=== PATIENT | female | born 1990 | race Caucasian/White ===

== ENCOUNTER 2021-08-03 06:52 | Observation (INO) | payer OTHER ==
[~2021-08-03] VITALS: Ht 165.1 cm; Wt 90.9 kg
[2021-08-03] MEDS ORDERED: HYDR50CA2 PO (07:10)
[2021-08-03] MEDS ORDERED: METO5TAB2 PO (07:10)
[2021-08-03] MEDS ORDERED: CYCL-707 PO (07:10)
[2021-08-03] MEDS ORDERED: VENL75CA47 PO (07:10)
[2021-08-03] MEDS ORDERED: QUET300T2 PO (07:10)
[2021-08-03] MEDS ORDERED: HYDR50TAB PO (07:10)
[2021-08-03] MEDS ORDERED: BUPR1SUB5 SL (07:10)
[2021-08-03] MEDS ORDERED: VENL150C43 PO (07:10)
[2021-08-03] MEDS ORDERED: LABE100T4 PO (07:10)
[2021-08-03] MEDS ORDERED: IBUPROFEN 800 MG TAB PO ONE (07:30)
[2021-08-03 07:59] LABS: HEMATOCRIT 28.1 % (36.0-47.0); MEAN CORPUSCULAR HEMOGLOBIN 28.5 pg (27.0-33.0); MEAN CORPUSCULAR HGB CONC 35.6 g/dl (32.0-36.5); MEAN CORPUSCULAR VOLUME 80.1 fl (80.0-96.0); PLATELET COUNT, AUTOMATED 216 10^3/uL (150-450); RED BLOOD COUNT 3.51 10^6/uL (4.00-5.40); WHITE BLOOD COUNT 13.9 10^3/uL (4.0-10.0)
[2021-08-03 08:25] LABS: EOSINOPHILS 2 % (0-3); LYMPHOCYTES 9 % (16-44); METAMYELOCYTES 1 % (0-0); MONOCYTES 5 % (0-5); MYELOCYTES 2 % (0-0); NEUTROPHILS 73 % (28-66)
[2021-08-03 08:29] LABS: HCG, SERUM QUALITATIVE NEGATIVE (NEGATIVE); MICROCYTOSIS 1+; PLATELET ESTIMATE NORMAL (NORMAL)
[2021-08-03 08:35] LABS: ALBUMIN 2.5 GM/DL (3.2-5.2); ALT/SGPT 21 U/L (12-78); BILIRUBIN,DIRECT 0.8 MG/DL (0.0-0.2); BILIRUBIN,TOTAL 1.1 MG/DL (0.2-1.0); BLOOD UREA NITROGEN 14 MG/DL (7-18); CALCIUM LEVEL 8.4 MG/DL (8.5-10.1); CARBON DIOXIDE LEVEL 26 MEQ/L (21-32); CHLORIDE LEVEL 94 MEQ/L (98-107); CREATININE FOR GFR 1.18 MG/DL (0.55-1.30); GLOMERULAR FILTRATION RATE 57.3 (>60); GLUCOSE, FASTING 130 MG/DL (70-100); LIPASE 39 U/L (73-393); POTASSIUM SERUM 2.6 MEQ/L (3.5-5.1); SODIUM LEVEL 131 MEQ/L (136-145); TOTAL PROTEIN 6.5 GM/DL (6.4-8.2)
[2021-08-03] MEDS ORDERED: KCL 10MEQ/100ML SWI (KRUN) 10 MEQ in IV 1 EA IV ONE (08:45)
[2021-08-03] MEDS ORDERED: NS 1,000 ML IV ONE (08:45)
[2021-08-03] MEDS ORDERED: PIPERACILLIN/TAZOBACTAM SOD 4.5 GM in D5W MINI-BAG PLUS 50 ML IV ONE (08:45)
[2021-08-03] MEDS ORDERED: NS 2,730 ML in IV 1 EA IV ONE (08:45)
[2021-08-03] MEDS ORDERED: QUEtiapine FUMARATE 50MG TAB PO SCH (09:00)
[2021-08-03] MEDS ORDERED: QUEtiapine FUMARATE 100 MG TAB PO SCH ×2 (09:00→21:00)
[2021-08-03] MEDS ORDERED: ISOVUE-370 76% 100ML VIAL As Ordered ONE (09:50)
[2021-08-03 09:58] LABS: MAGNESIUM LEVEL 1.9 MG/DL (1.8-2.4)
[2021-08-03 10:04] LABS: HEPATITIS B SURFACE ANTIGEN NEGATIVE (NEGATIVE)
[2021-08-03 10:31] LABS: HEPATITIS B CORE ANTIBODY IGM NEGATIVE (NEGATIVE)
[2021-08-03 11:19] LABS: HEPATITIS C VIRUS ABY INDEX > 11.0 INDEX (<0.8)
[2021-08-03] MEDS ORDERED: ALTA1TAB3 PO (11:49)
[2021-08-03] MEDS ORDERED: TRAZ150T90 PO (11:49)
[2021-08-03] MEDS ORDERED: QUET50TA4 PO (11:49)
[2021-08-03] MEDS ORDERED: LAMO150T3 PO (11:49)
[2021-08-03] MEDS ORDERED: HOME MED LIST COMPLETE! XX SCH (11:55)
[2021-08-03] MEDS ORDERED: **NOTE PATIENT COMMENT** MISC XX SCH (11:55)
[2021-08-03] MEDS: BUPRENORPHINE/NALOXONE 8-2MG SUBLINGUAL TABLET(SUBOXONE) SL SCH ×2 (12:43→21:14)
[2021-08-03 14:28] VITALS: BP 125/83
[2021-08-03] MEDS: cefTRIAXone SOD 2 GM in D5W MINI-BAG PLUS 50 ML IV SCH (14:48)
[2021-08-03] MEDS: KETOROLAC 30 MG/ML 1ML VIAL IV PRN ×2 (14:49→21:15)
[2021-08-03] MEDS: lamoTRIgine 100MG TAB PO SCH (14:50)
[2021-08-03] MEDS: VENLAFAXINE **XR** 75MG CAPSULE PO SCH ×2 (14:51→14:55)
[2021-08-03] MEDS: KCL 20MEQ in NS 1000ML 1,000 ML IV SCH (16:44)
[2021-08-03] MEDS: POTASSIUM CHLORIDE 10MEQ SR TABLET PO SCH ×2 (16:45→21:15)
[2021-08-03] MEDS: METOCLOPRAMIDE 5 MG TAB PO SCH ×2 (16:46→21:14)
[2021-08-03] MEDS: CYCLOBENZAPRINE 10MG TABLET PO SCH ×2 (16:46→21:14)
[2021-08-03] MEDS: LABETALOL 100MG TAB PO SCH ×2 (16:47→21:14)
[2021-08-03] MEDS: hydrOXYzine 50 MG TAB PO SCH ×2 (17:06→21:15)
[2021-08-03] MEDS: ACETAMINOPHEN 500 MG TAB PO PRN (17:07)
[2021-08-03 19:00] VITALS: BP 127/63
[2021-08-03] MEDS: MIRALAX *UNIT DOSE* 17GM PACKET PO SCH (21:13)
[2021-08-03] MEDS: traZODone 50 MG TAB PO SCH (21:14)
[2021-08-03] MEDS: SENOKOT S TAB PO SCH (21:15)
[2021-08-03] MEDS: QUEtiapine FUMARATE 100 MG TAB PO SCH (21:17)
[2021-08-03 22:00] VITALS: BP_SYST 107; BP_SYST 130; BP_DIAS 58; BP_DIAS 66
[2021-08-04] MEDS: KCL 20MEQ in NS 1000ML 1,000 ML IV SCH ×2 (03:49→14:23)
[2021-08-04] MEDS: ACETAMINOPHEN 500 MG TAB PO PRN (03:49)
[2021-08-04 06:00] VITALS: BP 122/63
[2021-08-04] MEDS: QUEtiapine FUMARATE 50MG TAB PO SCH ×2 (06:07→15:22)
[2021-08-04 06:37] LABS: HEMATOCRIT 25.5 % (36.0-47.0); HEMOGLOBIN 8.7 g/dl (12.0-15.5); MEAN CORPUSCULAR HEMOGLOBIN 28.2 pg (27.0-33.0); MEAN CORPUSCULAR HGB CONC 34.1 g/dl (32.0-36.5); MEAN CORPUSCULAR VOLUME 82.8 fl (80.0-96.0); PLATELET COUNT, AUTOMATED 171 10^3/uL (150-450); RED BLOOD COUNT 3.08 10^6/uL (4.00-5.40); WHITE BLOOD COUNT 13.3 10^3/uL (4.0-10.0)
[2021-08-04 07:00] LABS: BLOOD UREA NITROGEN 9 MG/DL (7-18); CALCIUM LEVEL 8.3 MG/DL (8.5-10.1); CARBON DIOXIDE LEVEL 29 MEQ/L (21-32); CHLORIDE LEVEL 104 MEQ/L (98-107); GLOMERULAR FILTRATION RATE > 60.0 (>60); GLUCOSE, FASTING 142 MG/DL (70-100); POTASSIUM SERUM 3.3 MEQ/L (3.5-5.1); SODIUM LEVEL 136 MEQ/L (136-145)
[2021-08-04] MEDS ORDERED: ALTAVERA PO SCH (09:00)
[2021-08-04] MEDS: MIRALAX *UNIT DOSE* 17GM PACKET PO SCH ×2 (09:09→20:11)
[2021-08-04] MEDS: METOCLOPRAMIDE 5 MG TAB PO SCH ×3 (09:09→20:11)
[2021-08-04] MEDS: lamoTRIgine 100MG TAB PO SCH (09:09)
[2021-08-04] MEDS: hydrOXYzine 50 MG TAB PO SCH ×3 (09:10→20:10)
[2021-08-04] MEDS: POTASSIUM CHLORIDE 10MEQ SR TABLET PO SCH ×3 (09:10→20:11)
[2021-08-04] MEDS: SENOKOT S TAB PO SCH ×2 (09:10→20:11)
[2021-08-04] MEDS: VENLAFAXINE **XR** 75MG CAPSULE PO SCH ×2 (09:10)
[2021-08-04] MEDS: CYCLOBENZAPRINE 10MG TABLET PO SCH ×3 (09:10→20:11)
[2021-08-04] MEDS: BUPRENORPHINE/NALOXONE 8-2MG SUBLINGUAL TABLET(SUBOXONE) SL SCH ×2 (09:10→20:10)
[2021-08-04] MEDS: ENOXAPARIN 40MG/0.4ML SYRINGE (J1650 PER 10MG) SC SCH (09:13)
[2021-08-04] MEDS: LABETALOL 100MG TAB PO SCH ×2 (09:17→20:11)
[2021-08-04 10:00] VITALS: BP 126/76
[2021-08-04 10:59] LABS: GC DNA AMPLIFICATION NEGATIVE (NEGATIVE)
[2021-08-04] MEDS: LIDOCAINE 5% (LIDODERM) PATCH TD SCH (11:06)
[2021-08-04] MEDS ORDERED: PHENAZOPYRIDINE 100 MG TAB PO PRN (11:25)
[2021-08-04] MEDS: BISACODYL 10 MG SUPP PR PRN (12:25)
[2021-08-04] MEDS: KETOROLAC 30 MG/ML 1ML VIAL IV PRN ×2 (12:29→21:06)
[2021-08-04] MEDS: cefTRIAXone SOD 2 GM in D5W MINI-BAG PLUS 50 ML IV SCH (13:30)
[2021-08-04 14:00] VITALS: BP 125/76
[2021-08-04 18:00] VITALS: BP 126/75
[2021-08-04] MEDS: QUEtiapine FUMARATE 100 MG TAB PO SCH (20:10)
[2021-08-04] MEDS: traZODone 50 MG TAB PO SCH (20:11)
[2021-08-04] MEDS ORDERED: **NOTE PATIENT COMMENT** MISC XX SCH (21:00)
[2021-08-04 22:00] VITALS: BP 143/90
[2021-08-05] MEDS: KCL 20MEQ in NS 1000ML 1,000 ML IV SCH ×3 (00:53→11:10)
[2021-08-05 02:00] VITALS: BP 114/55
[2021-08-05 06:00] VITALS: BP 116/74
[2021-08-05] MEDS: QUEtiapine FUMARATE 50MG TAB PO SCH (06:43)
[2021-08-05] MEDS: KETOROLAC 30 MG/ML 1ML VIAL IV PRN (06:52)
[2021-08-05 07:54] LABS: HEMATOCRIT 24.2 % (36.0-47.0); HEMOGLOBIN 8.1 g/dl (12.0-15.5); MEAN CORPUSCULAR HEMOGLOBIN 28.3 pg (27.0-33.0); MEAN CORPUSCULAR HGB CONC 33.5 g/dl (32.0-36.5); MEAN CORPUSCULAR VOLUME 84.6 fl (80.0-96.0); PLATELET COUNT, AUTOMATED 180 10^3/uL (150-450); RED BLOOD COUNT 2.86 10^6/uL (4.00-5.40); WHITE BLOOD COUNT 14.6 10^3/uL (4.0-10.0)
[2021-08-05 08:00] VITALS: BP 124/74
[2021-08-05] MEDS: ACETAMINOPHEN 500 MG TAB PO PRN (08:09)
[2021-08-05 08:51] LABS: BLOOD UREA NITROGEN 7 MG/DL (7-18); CALCIUM LEVEL 8.2 MG/DL (8.5-10.1); CARBON DIOXIDE LEVEL 24 MEQ/L (21-32); CHLORIDE LEVEL 109 MEQ/L (98-107); GLOMERULAR FILTRATION RATE > 60.0 (>60); GLUCOSE, FASTING 121 MG/DL (70-100); POTASSIUM SERUM 3.6 MEQ/L (3.5-5.1); SODIUM LEVEL 140 MEQ/L (136-145)
[2021-08-05] MEDS: lamoTRIgine 100MG TAB PO SCH (09:44)
[2021-08-05] MEDS: CYCLOBENZAPRINE 10MG TABLET PO SCH (09:44)
[2021-08-05] MEDS: BUPRENORPHINE/NALOXONE 8-2MG SUBLINGUAL TABLET(SUBOXONE) SL SCH (09:44)
[2021-08-05] MEDS: VENLAFAXINE **XR** 75MG CAPSULE PO SCH ×2 (09:44)
[2021-08-05] MEDS: BISACODYL 10 MG SUPP PR PRN (09:44)
[2021-08-05] MEDS: LIDOCAINE 5% (LIDODERM) PATCH TD SCH (09:45)
[2021-08-05] MEDS: POTASSIUM CHLORIDE 10MEQ SR TABLET PO SCH (09:45)
[2021-08-05] MEDS: METOCLOPRAMIDE 5 MG TAB PO SCH (09:45)
[2021-08-05] MEDS: SENOKOT S TAB PO SCH (09:45)
[2021-08-05] MEDS: MIRALAX *UNIT DOSE* 17GM PACKET PO SCH (09:45)
[2021-08-05] MEDS: hydrOXYzine 50 MG TAB PO SCH (09:45)
[2021-08-05] MEDS: ENOXAPARIN 40MG/0.4ML SYRINGE (J1650 PER 10MG) SC SCH (09:46)
[2021-08-05 09:48] VITALS: BP 125/68
[2021-08-05] MEDS: LABETALOL 100MG TAB PO SCH (09:48)
[2021-08-05] MEDS ORDERED: MAGNESIUM CITRATE 300 ML BTL PO ONE (09:50)
[2021-08-05] MEDS ORDERED: CEPH500C PO (09:56)
[2021-08-05] MEDS ORDERED: MIRA3350 PO (09:56)
[2021-08-05] MEDS ORDERED: SENO8.6T10 PO (09:56)
[2021-08-05 12:00] VITALS: BP 121/52
== END 2021-08-05 13:55 | disposition home or self-care (01) ==
LOC: M ED 06:52 → M ED INP 06:53 → ENRESERV 12:15 → M MSPAV 13:33
PROVIDERS: ADMIT Family Medicine; ATTEND Family Medicine
DX: N12 Tubulo-interstitial nephritis, not specified as acute or chronic (principal); B96.20 Unspecified Escherichia coli [E. coli] as the cause of diseases classified elsewhere; K59.09 Other constipation; I10 Essential (primary) hypertension; M54.50 Low back pain, unspecified; Z86.19 Personal history of other infectious and parasitic diseases; E87.6 Hypokalemia; R10.9 Unspecified abdominal pain; F99 Mental disorder, not otherwise specified; Z79.899 Other long term (current) drug therapy; Z79.2 Long term (current) use of antibiotics; Z79.3 Long term (current) use of hormonal contraceptives; F17.210 Nicotine dependence, cigarettes, uncomplicated
CPT/HCPCS: 36415; 71046; 74018; 74177; 76705; 80048; 80076; 81001; 83605; 83690; 83735; 84703; 85025; 85027; 86705; 86709; 86803; 87040; 87088; 87186; 87340; 87521; 87798; 87808; 87810; 87850; 93005; 96361; 96365; 96366; 96368; 96372; 96375; 96376; 99284; J0696; J1650; J1885; J2543; J3480; Q9967

== ENCOUNTER 2024-06-22 23:58 | Emergency (ER) | payer SELFPAY ==
[~2024-06-22] VITALS: Ht 162.6 cm; Wt 97.9 kg
[~2024-06-22 23:58] MED LIST: ALTA1TAB3 PO; BUPR1SUB5 SL; CEPH500C PO; CYCL-707 PO; HYDR50CA2 PO; HYDR50TAB PO; LABE100T6 PO; LAMO150T3 PO; METO5TAB2 PO; MIRA3350 PO; QUET300T2 PO; QUET50TA4 PO; SENO8.6T10 PO; TRAZ150T90 PO; VENL150C43 PO; VENL75CA47 PO
[2024-06-23 02:35] VITALS: BP 118/63; TEMP 98.7; O2SAT 100
[2024-06-23] MEDS ORDERED: DALBAVANCIN 1,500 MG in D5W 250 ML IV ONE (04:30)
[2024-06-23] MEDS: DALBAVANCIN 1,500 MG in D5W 250 ML IV ONE (06:07)
== END 2024-06-23 07:06 | disposition home or self-care (01) ==
LOC: M ED 06-23 02:28
DX: L03.311 Cellulitis of abdominal wall (principal); I10 Essential (primary) hypertension; K21.9 Gastro-esophageal reflux disease without esophagitis; F41.9 Anxiety disorder, unspecified; F31.9 Bipolar disorder, unspecified; F32.A Depression, unspecified; Z88.8 Allergy status to other drugs, medicaments and biological substances; Z79.2 Long term (current) use of antibiotics; Z79.899 Other long term (current) drug therapy
CPT/HCPCS: 93005; 96365; 99284; J0875

== ENCOUNTER 2024-06-28 21:40 | Observation (INO) | payer OTHER, SELFPAY ==
[~2024-06-28] VITALS: Ht 165.1 cm; Wt 69.6 kg
[2024-06-28] MEDS ORDERED: ISOVUE-370 76% 100ML VIAL As Ordered ONE (23:18)
[2024-06-28 23:26] LABS: HEMATOCRIT 31.1 % (36.0-47.0); HEMOGLOBIN 10.5 g/dl (12.0-15.5); MEAN CORPUSCULAR HGB CONC 33.8 g/dl (32.0-36.5); MEAN CORPUSCULAR VOLUME 91.7 fl (80.0-96.0); PLATELET COUNT, AUTOMATED 451 10^3/uL (150-450); RED BLOOD COUNT 3.39 10^6/uL (4.00-5.40); WHITE BLOOD COUNT 11.5 10^3/uL (4.0-10.0)
[2024-06-28 23:32] LABS: ERYTHROCYTE SEDIMENTATION RATE 100 mm/hr (0-20)
[2024-06-28 23:46] LABS: ATYPICAL LYMPH 1 % (0-5); LYMPHOCYTES 17 % (16-44); MONOCYTES 6 % (0-5); NEUTROPHILS 75 % (28-66)
[2024-06-28 23:47] LABS: ALBUMIN 1.9 G/DL (3.2-5.2); ALKALINE PHOSPHATASE 185 U/L (35-104); ALT/SGPT 10 U/L (7.0-40); AST/SGOT 17 U/L (<34); BILIRUBIN,DIRECT 0.2 MG/DL (<0.4); BILIRUBIN,TOTAL 0.3 MG/DL (0.3-1.2); C REACTIVE PROTEIN QUANTITATIV 12.32 MG/DL (<1.0); PLATELET ESTIMATE INCREASED (NORMAL); TOTAL PROTEIN 7.2 G/DL (5.7-8.2)
[2024-06-28] MEDS ORDERED: MORPHINE 4 MG/ML 1ML VIAL IV PRN (23:50)
[2024-06-28 23:59] LABS: PROCALCITONIN 2.91 ng/ml
[2024-06-29] MEDS: ACETAMINOPHEN *IV* 1,000 MG in IV 1 EA IV ONE (00:16)
[2024-06-29] MEDS ORDERED: MOM 30ML SUSPENSION UDC PO PRN (02:00)
[2024-06-29] MEDS ORDERED: ACETAMINOPHEN 325 MG TAB PO PRN (02:00)
[2024-06-29] MEDS ORDERED: BOOSTRIX VACCINE (TETANUS/DIPHTH/ACEL. PERTUSSIS) 0.5ML SYR IM ONE (02:00)
[2024-06-29] MEDS ORDERED: MAALOX 30 ML SUSP *UDC PO PRN (02:00)
[2024-06-29] MEDS ORDERED: ONDANSETRON 4MG ORAL DISINTEGRATING TAB PO PRN (02:30)
[2024-06-29 04:00] VITALS: BP 142/84; TEMP 97.9; O2SAT 100
[2024-06-29] MEDS: VANCOMYCIN HCL 1,500 MG, VIAL MATE ADAPTER 1 EACH in NS 500 ML IV ONE (04:28)
[2024-06-29] MEDS: PERCOCET 5MG/325MG TAB PO PRN ×2 (04:32→08:34)
[2024-06-29 04:51] LABS: HEPATITIS B CORE ANTIBODY IGM NEGATIVE (NEGATIVE); HEPATITIS B SURFACE ANTIGEN NEGATIVE (NEGATIVE); HIV 1&2 SCREEN NEGATIVE (NEGATIVE)
[2024-06-29 04:55] LABS: HEPATITIS C VIRUS ABY INDEX > 11.00 INDEX (<0.8)
[2024-06-29] MEDS ORDERED: CEFEPIME HCL 2 GM in DEXTROSE 5% (D5W) ADV/MINI-BAG 50 ML IV SCH (05:00)
[2024-06-29] MEDS ORDERED: HOME MED LIST COMPLETE! XX SCH (05:00)
[2024-06-29] MEDS: CEFEPIME HCL 2 GM in DEXTROSE 5% (D5W) ADV/MINI-BAG 50 ML IV SCH (06:55)
[2024-06-29] MEDS: DOCUSATE SODIUM 100MG CAPSULE PO SCH (08:31)
[2024-06-29] MEDS: ENOXAPARIN 40MG/0.4ML SYRINGE (J1650 PER 10MG) SC SCH (09:00)
[2024-06-29] MEDS: BOOSTRIX VACCINE (TETANUS/DIPHTH/ACEL. PERTUSSIS) 0.5ML SYR IM ONE (09:14)
[2024-06-29] MEDS: VANCOMYCIN 1,000MG/200 ML IV BAG IV SCH (11:08)
[2024-06-29 12:00] VITALS: BP 112/68; TEMP 97.6; O2SAT 97
[2024-06-29 12:20] VITALS: O2SAT 95
[2024-06-29 14:06] LABS: AMPHETAMINES LEVEL URINE NEGATIVE (NEGATIVE); BARBITURATES URINE NEGATIVE (NEGATIVE); BENZODIAZEPINES URINE NEGATIVE (NEGATIVE); CANNABINOIDS URINE NEGATIVE (NEGATIVE); COCAINE METABOLITE URINE NEGATIVE (NEGATIVE); METHADONE URINE NEGATIVE (NEGATIVE); OPIATES URINE NEGATIVE (NEGATIVE); PHENCYCLIDINE URINE NEGATIVE (NEGATIVE)
[2024-06-29 20:28] VITALS: BP 129/77; TEMP 97.9; O2SAT 98
[2024-06-30] VITALS: BP 125/72; TEMP 98; O2SAT 100
[2024-06-30 04:00] VITALS: BP 128/78; TEMP 98.1; O2SAT 97
[2024-06-30] MEDS: HYALURONIDASE 15UNIT/ML 1ML SYRINGE (AMPHADASE) SC ONE (06:07)
[2024-06-30 06:11] LABS: BASO % 0.3 % (0.0-1.0); EOS # 0.1 10^3/uL (0.0-0.5); EOS % 0.9 % (0.0-3.0); HEMATOCRIT 31.1 % (36.0-47.0); LYMPH # 1.4 10^3/uL (1.5-5.0); LYMPH % 14.9 % (24.0-44.0); MEAN CORPUSCULAR HEMOGLOBIN 30.7 pg (27.0-33.0); MEAN CORPUSCULAR HGB CONC 32.2 g/dl (32.0-36.5); MEAN CORPUSCULAR VOLUME 95.4 fl (80.0-96.0); MONO # 0.4 10^3/uL (0.0-0.8); MONO % 4.6 % (2.0-8.0); NEUTROPHILS # 6.5 10^3/uL (1.5-8.5); NEUTROPHILS % 70.4 % (36.0-66.0); RED BLOOD COUNT 3.26 10^6/uL (4.00-5.40); WHITE BLOOD COUNT 9.2 10^3/uL (4.0-10.0)
[2024-06-30 06:32] LABS: PLATELET COUNT, AUTOMATED 395 10^3/uL (150-450)
[2024-06-30 06:45] LABS: ALBUMIN 1.8 G/DL (3.2-5.2); ALKALINE PHOSPHATASE 151 U/L (35-104); ALT/SGPT < 9 U/L (7.0-40); AST/SGOT 14 U/L (<34); BILIRUBIN,TOTAL 0.2 MG/DL (0.3-1.2); BLOOD UREA NITROGEN 8 MG/DL (9-23); C REACTIVE PROTEIN QUANTITATIV 4.75 MG/DL (<1.0); CALCIUM LEVEL 8.2 MG/DL (8.5-10.1); CARBON DIOXIDE LEVEL 24 MMOL/L (20-31); CHLORIDE LEVEL 111 MMOL/L (98-107); CREATININE FOR GFR 0.44 MG/DL (0.55-1.30); GLOMERULAR FILTRATION RATE > 60.0 (>60); GLUCOSE, FASTING 100 MG/DL (60-100); MAGNESIUM LEVEL 1.7 MG/DL (1.8-2.4); POTASSIUM SERUM 3.9 MMOL/L (3.5-5.1); PROCALCITONIN 1.15 ng/ml; SODIUM LEVEL 143 MMOL/L (136-145); TOTAL PROTEIN 6.4 G/DL (5.7-8.2)
[2024-06-30] MEDS: MAGNESIUM OXIDE 400MG TAB (MAG-OX) PO ONE (09:07)
[2024-06-30 12:00] VITALS: BP 124/75; TEMP 97.6; O2SAT 96
[2024-06-30] MEDS: HYDROMORPHONE HCL 0.5 MG/ 0.5 ML SYRINGE IV PRN (13:53)
[2024-06-30] MEDS: LevoFLOXacin 750 MG TABLET PO SCH (17:26)
[2024-06-30] MEDS: MUPIROCIN 2% OINT 22 GM TUBE TOP SCH (20:06)
[2024-06-30 20:34] VITALS: BP 114/67; TEMP 97.9; O2SAT 98
[2024-07-01 01:53] VITALS: BP 131/80; TEMP 98.1; O2SAT 96
[2024-07-01 04:40] VITALS: BP 135/78; TEMP 98.1; O2SAT 99
[2024-07-01 05:45] VITALS: O2SAT 98
[2024-07-01 07:48] LABS: HCV RNA QUANTITATION <15 NOT DETECTED IU/mL (NOT DETECTED); HCV RNA log10 <1.18 NOT DETECTED Log IU/mL (NOT DETECTED)
[2024-07-01 09:12] LABS: BASO % 0.4 % (0.0-1.0); EOS # 0.1 10^3/uL (0.0-0.5); HEMATOCRIT 31.5 % (36.0-47.0); HEMOGLOBIN 10.3 g/dl (12.0-15.5); LYMPH # 1.7 10^3/uL (1.5-5.0); LYMPH % 18.1 % (24.0-44.0); MEAN CORPUSCULAR HEMOGLOBIN 30.7 pg (27.0-33.0); MEAN CORPUSCULAR HGB CONC 32.7 g/dl (32.0-36.5); MONO # 0.5 10^3/uL (0.0-0.8); NEUTROPHILS # 6.1 10^3/uL (1.5-8.5); NEUTROPHILS % 66.9 % (36.0-66.0); PLATELET COUNT, AUTOMATED 340 10^3/uL (150-450); RED BLOOD COUNT 3.35 10^6/uL (4.00-5.40); WHITE BLOOD COUNT 9.1 10^3/uL (4.0-10.0)
[2024-07-01 09:23] LABS: BLOOD UREA NITROGEN 8 MG/DL (9-23); CALCIUM LEVEL 8.6 MG/DL (8.5-10.1); CARBON DIOXIDE LEVEL 25 MMOL/L (20-31); CHLORIDE LEVEL 109 MMOL/L (98-107); CREATININE FOR GFR 0.47 MG/DL (0.55-1.30); GLOMERULAR FILTRATION RATE > 60.0 (>60); GLUCOSE, FASTING 92 MG/DL (60-100); POTASSIUM SERUM 3.9 MMOL/L (3.5-5.1); SODIUM LEVEL 144 MMOL/L (136-145)
[2024-07-01] MEDS ORDERED: DICL50TA2 PO (10:16)
[2024-07-01] MEDS ORDERED: MUPI2OI TOP (10:16)
[2024-07-01] MEDS ORDERED: GABA-1171 PO (10:16)
[2024-07-01] MEDS ORDERED: LEVO75TAB PO (10:16)
[2024-07-01] MEDS ORDERED: HIBI4LIQ EX (10:16)
[2024-07-02 10:16] LABS: HEPATITIS A IgG TOTAL NON-REACTIVE (NON-REACTIVE); HEPATITIS B CORE ANTIBODY IGG NON-REACTIVE (NON-REACTIVE); HEPATITIS B SURF AB QUANT 108 mIU/mL (> OR = 10)
== END 2024-07-01 13:40 | disposition home or self-care (01) ==
LOC: M ED 21:40 → EEVIPCON 06-29 01:56 → M ED INP 06-29 01:56 → M MS5PR 06-29 03:36
PROVIDERS: ADMIT Family Medicine; ATTEND Internal Medicine
DX: L03.311 Cellulitis of abdominal wall (principal); Z79.899 Other long term (current) drug therapy; B18.2 Chronic viral hepatitis C; Z88.8 Allergy status to other drugs, medicaments and biological substances
CPT/HCPCS: 36415; 71046; 74177; 80047; 80048; 80053; 80074; 80076; 80202; 80307; 81001; 83605; 83735; 84145; 85025; 85652; 86140; 86317; 86704; 86708; 87040; 87070; 87205; 87389; 87486; 87522; 87581; 87633; 87641; 87798; 93005; 93306; 94760; 96365; 96366; 96367; 96372; 96375; 96376; 99285; J0131; J0692; J1171; J3370; J3372; J3470; Q9967